=== PATIENT | male | born 1965 | race Caucasian/White ===

== ENCOUNTER → 2016-09-09 | Outpatient (CLI) | payer OTHER ==
--- NOTE | 2016-09-09 09:48 | DI ---
LEFT ANKLE, 09/09/2016 8:47 AM: Clinical History: Acute left ankle pain. Previous Exam: None at this facility. 3 views are submitted. There is soft tissue swelling both on the medial and lateral aspects of the an kle joint, but without evidence of an ankle effusion. No fracture or dislocation is present. There ar e small bony densities at the tip of the medial malleolus consistent with previous injury to the delt oid ligament. The ankle mortise is intact. There is an os trigonum. Reading: Soft tissue swelling medially and laterally without evidence of a fracture or dislocation.
== END ==
LOC: MOB RAD 08:48
PROVIDERS: ATTEND Nurse Practitioner Family
DX: M25.572 Pain in left ankle and joints of left foot (principal); M79.89 Other specified soft tissue disorders
CPT/HCPCS: 73610